=== PATIENT | female | born 1980 | race Caucasian/White ===

== ENCOUNTER 2016-10-02 14:52 | Emergency (ER) | payer OTHER ==
[2016-10-02 15:35] LABS: CONTROL LINE UCG INT CTR LINE PRESENT
== END 2016-10-02 15:58 | disposition left against medical advice (07) ==
LOC: M ED 14:52
DX: Z53.29 Procedure and treatment not carried out because of patient's decision for other reasons (principal)

== ENCOUNTER 2016-10-03 15:38 | Emergency (ER) | payer MEDICAID, OTHER, SELFPAY ==
[2016-10-03] MEDS ORDERED: ONDANSETRON 4MG/2ML VIAL (J2405) As Ordered ONE (17:41)
[2016-10-03] MEDS ORDERED: KETOROLAC 30 MG/ML VIAL (J1885) As Ordered ONE (17:41)
[2016-10-03 18:09] LABS: BASO % 0.2 % (0.0-1.0); EOS # 0.2 K/mm3 (0.0-0.50); EOS % 1.1 % (0.0-3.0); LARGE UNSTAINED CELL # 0.1 K/mm3 (0.0-0.4); LARGE UNSTAINED CELL % 0.7 % (0.0-4.0); LYMPH % 6.3 % (24.0-44.0); MEAN CORPUSCULAR HEMOGLOBIN 32.5 pg (27.0-33.0); MEAN CORPUSCULAR HGB CONC 36.2 g/dl (32.0-36.5); MEAN CORPUSCULAR VOLUME 89.8 fl (80.0-96.0); MONO # 0.6 K/mm3 (0.0-0.8); MONO % 3.9 % (0.0-5.0); NEUTROPHILS # 13.5 K/mm3 (1.8-7.7); NEUTROPHILS % 87.8 % (36.0-66.0); PLATELET COUNT, AUTOMATED 251 k/mm3 (150-450); RED CELL DISTRIBUTION WIDTH 13.3 % (11.5-14.5); WHITE BLOOD COUNT 15.4 K/mm3 (4.0-10.0)
[2016-10-03 18:11] LABS: INR 1.02
[2016-10-03 18:32] LABS: ALBUMIN 3.8 GM/DL (3.2-5.2); ALKALINE PHOSPHATASE 96 U/L (45-117); ALT/SGPT 33 U/L (12-78); AMYLASE 46 U/L (25-115); ANION GAP 10 MEQ/L (8-16); AST/SGOT 17 U/L (15-37); BILIRUBIN,DIRECT 0.2 MG/DL (0.0-0.2); BILIRUBIN,TOTAL 0.6 MG/DL (0.2-1.0); BLOOD UREA NITROGEN 13 MG/DL (7-18); CALCIUM LEVEL 8.9 MG/DL (8.5-10.1); CARBON DIOXIDE LEVEL 24 MEQ/L (21-32); CHLORIDE LEVEL 104 MEQ/L (98-107); CREATININE FOR GFR 0.84 MG/DL (0.55-1.02); GLOMERULAR FILTRATION RATE > 60.0 (>60); GLUCOSE, FASTING 95 MG/DL (70-105); POTASSIUM SERUM 3.9 MEQ/L (3.5-5.1); SODIUM LEVEL 138 MEQ/L (136-145); TOTAL PROTEIN 7.6 GM/DL (6.4-8.2)
--- NOTE | 2016-10-03 19:19 | EDDOCDS ---
Physician Documentation [facility] Name: Ashley Carreon Age: 35 yrs Sex: Female : 1980 Arrival Date: 10/03/2016 Time: 15:38 Bed 9 Private MD: Beto Jimenez FPA Disposition: 10/03/16 19:03 Discharged to Home/Self Care. Impression: Abdominal and pelvic pain. - Condition is Stable. - Discharge Instructions: Abdominal Pain, Adult. - Prescriptions for [place]ade 5- 325 mg Oral Tablet - take 1 tablet by ORAL route every 6 hours As needed MDD: 4 tabs; 20 tablet. Zofran 4 mg Oral Tablet - take 1 tablet by ORAL route 4 times per day As needed; 10 tablet. - Medication Reconciliation, Local Pharmacy Hours form. - Follow up: Beto Jimenez; When: 2 - 3 days; Reason: Recheck today's complaints, Continuance of care. - Problem is an ongoing problem. - Symptoms are unchanged. Historical: - Allergies: peanuts; - Home Meds: 1. albuterol sulfate 90 mcg/actuation Inhl HFAA 1 puff as needed as needed (Last dose: 09/18/2016) - PMHx: Asthma; - PSHx: none; - Social history: Smoking status: Patient uses tobacco products, current every day smoker. No barriers to communication noted, The patient speaks fluent Lao. - Family history: Not pertinent. - : The pt / caregiver states he / she is not on anticoagulants. Home medication list is obtained from the patient. - Exposure Risk Screening:: None identified. 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 4 in. (162.56 cm) (R); Pain 10/10; 19:11 BP 106 / 53; Pulse 86; Resp 18; Temp 97.0(O); Pulse Ox 99% on R/A; Pain 4/10; jon 15:40 Body Mass Index 34.67 (91.63 kg, 162.56 cm) gr2 MDM: 15:47 UCG by Nursing ordered. dt4 15:47 Urinalysis Ordered. EDMS 15:48 Urine Culture Ordered. EDMS 16:45 NS 0.9% 1000 ml IV at 100 mL/hr continuous ordered. ke 16:45 Ondansetron 4 mg IVP once ordered. ke 16:45 ketorolac 30 mg IVP once ordered. ke 16:45 IV Saline Lock ordered. ke 16:45 Undress patient appropriately for examination ordered. ke 16:46 Amylase Ordered. EDMS 16:46 Basic Metabolic Profile Ordered. EDMS 16:46 CBC with Diff Ordered. EDMS 16:46 Lipase Ordered. EDMS 16:46 Liver Profile Ordered. EDMS 16:46 Prothrombin Time Profile\E\INR Ordered. EDMS 16:46 CT ABD & PELVIS: No Contrast Ordered. EDMS 16:46 NOTHING BY MOUTH+DIET ordered. EDMS 18:14 Financial registration complete. gjb 18:39 CBC with Diff Reviewed. ke 18:39 Urinalysis Reviewed. ke 18:39 Amylase Reviewed. ke 18:39 Basic Metabolic Profile Reviewed. ke 18:39 Lipase Reviewed. ke 18:39 Liver Profile Reviewed. ke 18:39 Prothrombin Time Profile\E\INR Reviewed. ke Point of Care Testing: Urine : 17:43 hCG Reading: Negative; Control Reading: Positive; ct3 Ranges: Administered Medications: 17:40 Drug: NS 0.9% 1000 ml [sodium chloride 0.9 % intravenous solution] Route: IV; Rate: 100 ml6 mL/hr; Site: left forearm; 17:40 Drug: Ondansetron 4 mg [ondansetron HCl 2 mg/mL intravenous solution (2 mL)] Route: ml6 IVP; Site: left forearm; 17:40 Drug: ketorolac 30 mg [ketorolac 30 mg/mL (1 mL) injection solution (1 mL)] Route: IVP; ml6 Site: left forearm; Signatures: Dispatcher [employer] Hansel Wellington, RN Vincent Art, ACCOUNTING SOFTWARE SPECIALIST ACCOUNTING SOFTWARE SPECIALIST Keren Schumacher PAErnieC PA-C dt4 Georgia Lopez RN RN ko2 Tania Wheatley Matthew RN ml6 MTDD
--- NOTE | 2016-10-03 19:19 | EDDOCDS ---
Nurse's Notes [facility] Name: Ashley Carreon Age: 35 yrs Sex: Female : 1980 Arrival Date: 10/03/2016 Time: 15:38 Bed 9 Private MD: Beto Jimenez FPA Diagnosis: Abdominal and pelvic pain Presentation: 10/03 15:51 Presenting complaint: Patient states: Left flank pain for 5 days, worsening dwg progressively. Acute neurological deficits are not present. Mechanism of Injury: No Mechanism of Injury. Adult Sepsis Screening: The patient does not have new or worsening altered mentation. Patient's respiratory rate is less than 22. Systolic blood pressure is greater than 100. Patient has a qSOFA score of 0- Negative Sepsis Screen. Suicide/Homicide risk assessment- the patient denies having any suicidal and/or homicidal ideations and does not present with any other emotional, behavioral or mental health complaints. Status: Patient is not a captain room service or dependent. Transition of care: patient was not received from another setting of care. 15:51 Acuity: CLARA Level 3 dwg 15:51 Method Of Arrival: Walkin/Carried/Asstd dwg Triage Assessment: 15:53 General: Appears in no apparent distress. Pain: Pain currently is 8 out of 10 on a pain dwg scale. HIV screening NA for this visit Offered previously. 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 albuterol sulfate 90 mcg/actuation Inhl HFAA 1 puff as needed as needed (Last dose: 09/18/2016) - PMHx: Asthma; - PSHx: none; - Social history: Smoking status: Patient uses tobacco products, current every day smoker. No barriers to communication noted, The patient speaks fluent Rwandan. - Family history: Not pertinent. - : The pt / caregiver states he / she is not on anticoagulants. Home medication list is obtained from the patient. - Exposure Risk Screening:: None identified. Screenin:53 Screening information is obtained from the patient. Fall risk: No risks identified. ml6 Assistance ADL's: requires no assistance with activities of daily living. Abuse/DV Screen: The patient / caregiver reports he/she is: not in a situation that causes fear, pain or injury. Nutritional screening: No deficits noted. Advance Directives: Currently, there is no health care proxy. home support is adequate. Assessment: 16:10 General: Appears in no apparent distress, Behavior is appropriate for age, cooperative. ml6 Pain: Location: abdomen Pain currently is 6 out of 10 on a pain scale. Pain does not radiate. Quality of pain is described as aching, crampy, Pain began 2-3 days ago. Neurological: No deficits noted. Cardiovascular: No deficits noted. Capillary refill < 3 seconds is brisk in bilateral fingers toes. Respiratory: No deficits noted. Airway is patent Respiratory effort is even, unlabored, Respiratory pattern is regular, symmetrical, Breath sounds are clear bilaterally. GI: No deficits noted. Abdomen is flat, non- distended Bowel sounds present X 4 quads. Abd is soft X 4 quads Abd is tender to palpation X 4 quads. Reports nausea, vomiting. Musculoskeletal: No deficits noted. 17:12 Reassessment: Patient appears in no apparent distress at this time. Patient denies pain ml6 at this time. Patient states feeling better. Patient states symptoms have improved. patient states pain has improved. 18:05 Reassessment: Patient appears in no apparent distress at this time. Patient denies pain ml6 at this time. Patient states feeling better. Patient states symptoms have improved. no change from previous assessment. 19:16 General: Appears in no apparent distress, Behavior is appropriate for age, cooperative. ko2 Pain: Location: abdomen. Neurological: No deficits noted. Respiratory: No deficits noted. Airway is patent Respiratory effort is even, unlabored. Musculoskeletal: Range of motion intact in all extremities. Vital Signs: 15:40 BP 134 / 81; Pulse 114; Resp 18 S; Temp 98.5(O); Pulse Ox 99% on R/A; Weight 91.63 kg gr2 (R); Height 5 ft. 4 in. (162.56 cm) (R); Pain 10/10; 19:11 BP 106 / 53; Pulse 86; Resp 18; Temp 97.0(O); Pulse Ox 99% on R/A; Pain 4/10; jon 15:40 Body Mass Index 34.67 (91.63 kg, 162.56 cm) gr2 Vitals: 15:40 Log In Time: October 03, 2016 at 15:40. gr2 ED Course: 15:40 Patient visited by Arnold Calixto. gr2 15:40 Beto Jimenez is Private Physician. gr2 15:40 Patient moved to Waiting gr2 15:41 Patient visited by Arnold Calixto. gr2 15:41 Patient moved to Pre RCE gr2 15:52 Triage Initiated dwg 16:38 Marko Almanzar, RN is Primary Nurse. mb9 16:38 [facility] ke 16:38 Patient visited by Vincent Hewitt FNP. ke 16:38 Patient visited by Vincnet Hewitt FNP. ke 16:38 Patient moved to 9 mb9 17:10 Inserted peripheral IV: 20gauge IV in left forearm and blood collected. Patient ml6 tolerated the procedure well. No procedures done that require assistance. Labs drawn. (by ED staff). Sent per order to lab. 17:13 Patient visited by Vincent Hewitt FNP. ke 17:40 Urine Culture Sent. ct3 17:40 Urinalysis Sent. ct3 17:43 Patient visited by Merlyn Mclaughlin PCA. ct3 18:05 Patient visited by Vincent Hewitt FNP. ke 18:28 Patient visited by Vincent Hewitt FNP. ke 18:43 Patient name changed from Ashley\S\Allsison\S\Lauri\S\ to Ashley\S\A\S\Lauri. EDMS 18:54 Patient visited by Marko Almanzar RN. ml6 19:02 Beto Jimenez is Referral Physician. ke 19:11 Patient visited by Cele Moraes PCA. jon 19:17 The patient / caregiver is instructed regarding the plan of care and ED course. ko2 Administered Medications: 17:40 Drug: NS 0.9% 1000 ml [sodium chloride 0.9 % intravenous solution] Route: IV; Rate: 100 ml6 mL/hr; Site: left forearm; 17:40 Drug: Ondansetron 4 mg [ondansetron HCl 2 mg/mL intravenous solution (2 mL)] Route: ml6 IVP; Site: left forearm; 17:40 Drug: ketorolac 30 mg [ketorolac 30 mg/mL (1 mL) injection solution (1 mL)] Route: IVP; ml6 Site: left forearm; Point of Care Testing: Urine : 17:43 hCG Reading: Negative; Control Reading: Positive; ct3 Ranges: Order Results: Lab Order: Urinalysis; SPEC'M 10/03/16 17:25 Test: APPEARANCE, URINE; Value: HAZY; Range: CLEAR; Status: F Test: COLOR, URINE; Value: YELLOW; Range: YELLOW; Status: F Test: PH,URINE; Value: 5.0; Range: 5.0-9.0; Units: UNITS; Status: F Test: SPECIFIC GRAVITY URINE AUTO; Value: 1.020; Range: 1.002-1.035; Status: F Test: PROTEIN, URINE AUTO; Value: NEGATIVE; Range: NEGATIVE; Units: mg/dL; Status: F Test: GLUCOSE, URINE (UA) AUTO; Value: NEGATIVE; Range: NEGATIVE; Units: mg/dL; Status: F Test: KETONE, URINE AUTO; Value: NEGATIVE; Range: NEGATIVE; Units: mg/dL; Status: F Test: UROBILINOGEN, URINE AUTO; Value: 0.2; Range: 0.0-2.0; Units: mg/dL; Status: F Test: BILIRUBIN, URINE AUTO; Value: NEGATIVE; Range: NEGATIVE; Status: F Test: NITRITE, URINE AUTO; Value: NEGATIVE; Range: NEGATIVE; Status: F Test: LEUKOCYTE ESTERASE, URINE AUTO; Value: NEGATIVE; Range: NEGATIVE; Status: F Test: BLOOD, URINE BLOOD; Value: NEGATIVE; Range: NEGATIVE; Status: F Test: WBC, URINE AUTO; Value: 2; Range: 0-3; Units: /HPF; Status: F Test: RBC, URINE AUTO; Value: 1; Range: 0-3; Units: /HPF; Status: F Test: BACTERIA, URINE AUTO; Value: NEGATIVE; Range: NEGATIVE; Status: F Test: SQUAMOUS EPITHELIAL CELL UR AU; Value: 4; Range: 0-6; Units: /HPF; Status: F Test: MUCUS, URINE; Value: SMALL; Range: NEGATIVE; Status: F Test: HYALINE CAST, URINE AUTO; Value: 0; Range: 0-1; Units: /LPF; Status: F Lab Order: Amylase; SPEC'M 10/03/16 17:49 Test: AMYLASE; Value: 46; Range: 25-115; Units: U/L; Status: F Lab Order: Basic Metabolic Profile; SPEC'M 10/03/16 17:49 Test: GLUCOSE, FASTING; Value: 95; Range: 70-105; Units: MG/DL; Status: F Test: BLOOD UREA NITROGEN; Value: 13; Range: 7-18; Units: MG/DL; Status: F Test: CREATININE FOR GFR; Value: 0.84; Range: 0.55-1.02; Units: MG/DL; Status: F Test: GLOMERULAR FILTRATION RATE; Value: > 60.0; Range: >60; Status: F Test: SODIUM LEVEL; Value: 138; Range: 136-145; Units: MEQ/L; Status: F Test: POTASSIUM SERUM; Value: 3.9; Range: 3.5-5.1; Units: MEQ/L; Status: F Test: CHLORIDE LEVEL; Value: 104; Range: 98-107; Units: MEQ/L; Status: F Test: CARBON DIOXIDE LEVEL; Value: 24; Range: 21-32; Units: MEQ/L; Status: F Test: ANION GAP; Value: 10; Range: 8-16; Units: MEQ/L; Status: F Test: CALCIUM LEVEL; Value: 8.9; Range: 8.5-10.1; Units: MG/DL; Status: F Test Note: ; Units are mL/min/1.73 m2 Chronic Kidney Disease Staging per NKF: Stage I & II GFR >=60 Normal to Mildly Decreased Stage III GFR 30-59 Moderately Decreased Stage IV GFR 15-29 Severely Decreased Stage V GFR <15 Very Little GFR Left ESRD GFR <15 on EMBEDDED SYSTEMS ENGINEER Lab Order: CBC with Diff; SPEC'M 10/03/16 17:50 Test: WHITE BLOOD COUNT; Value: 15.4; Range: 4.0-10.0; Abnormal: Above high normal; Units: K/mm3; Status: F Test: RED BLOOD COUNT; Value: 5.12; Range: 4.00-5.40; Units: M/mm3; Status: F Test: HEMOGLOBIN; Value: 16.7; Range: 12.0-16.0; Abnormal: Above high normal; Units: g/dl; Status: F Test: HEMATOCRIT; Value: 46.0; Range: 36.0-47.0; Units: %; Status: F Test: MEAN CORPUSCULAR VOLUME; Value: 89.8; Range: 80.0-96.0; Units: fl; Status: F Test: MEAN CORPUSCULAR HEMOGLOBIN; Value: 32.5; Range: 27.0-33.0; Units: pg; Status: F Test: MEAN CORPUSCULAR HGB CONC; Value: 36.2; Range: 32.0-36.5; Units: g/dl; Status: F Test: RED CELL DISTRIBUTION WIDTH; Value: 13.3; Range: 11.5-14.5; Units: %; Status: F Test: PLATELET COUNT, AUTOMATED; Value: 251; Range: 150-450; Units: k/mm3; Status: F Test: NEUTROPHILS %; Value: 87.8; Range: 36.0-66.0; Abnormal: Above high normal; Units: %; Status: F Test: LYMPH %; Value: 6.3; Range: 24.0-44.0; Abnormal: Below low normal; Units: %; Status: F Test: MONO %; Value: 3.9; Range: 0.0-5.0; Units: %; Status: F Test: EOS %; Value: 1.1; Range: 0.0-3.0; Units: %; Status: F Test: BASO %; Value: 0.2; Range: 0.0-1.0; Units: %; Status: F Test: LARGE UNSTAINED CELL %; Value: 0.7; Range: 0.0-4.0; Units: %; Status: F Test: NEUTROPHILS #; Value: 13.5; Range: 1.8-7.7; Abnormal: Above high normal; Units: K/mm3; Status: F Test: LYMPH #; Value: 1.0; Range: 1.5-4.5; Abnormal: Below low normal; Units: K/mm3; Status: F Test: MONO #; Value: 0.6; Range: 0.0-0.8; Units: K/mm3; Status: F Test: EOS #; Value: 0.2; Range: 0.0-0.50; Units: K/mm3; Status: F Test: BASO #; Value: 0.0; Range: 0.0-0.2; Units: K/mm3; Status: F Test: LARGE UNSTAINED CELL #; Value: 0.1; Range: 0.0-0.4; Units: K/mm3; Status: F Lab Order: Lipase; SPEC'M 10/03/16 17:49 Test: LIPASE; Value: 88; Range: 73-393; Units: U/L; Status: F Lab Order: Liver Profile; SPEC'M 10/03/16 17:49 Test: AST/SGOT; Value: 17; Range: 15-37; Units: U/L; Status: F Test: ALT/SGPT; Value: 33; Range: 12-78; Units: U/L; Status: F Test: ALKALINE PHOSPHATASE; Value: 96; Range: 45-117; Units: U/L; Status: F Test: BILIRUBIN,TOTAL; Value: 0.6; Range: 0.2-1.0; Units: MG/DL; Status: F Test: BILIRUBIN,DIRECT; Value: 0.2; Range: 0.0-0.2; Units: MG/DL; Status: F Test: TOTAL PROTEIN; Value: 7.6; Range: 6.4-8.2; Units: GM/DL; Status: F Test: ALBUMIN; Value: 3.8; Range: 3.2-5.2; Units: GM/DL; Status: F Test: ALBUMIN/GLOBULIN RATIO; Value: 1.00; Range: 1.00-1.93; Status: F Lab Order: Prothrombin Time Profile\E\INR; [facility] 10/03/16 17:49 Test: PROTHROMBIN TIME; Value: 13.5; Range: 12.3-14.5; Units: SECONDS; Status: F Test: INR; Value: 1.02; Status: F Test Note: ; THERAPUTIC HUMAN INR VALUES INDICATIONS NORMAL RANGES PROPHYLAXIS/TREATMENT OF: VENOUS THROMBOSIS 2.0-3.0 PULMONARY EMBOLISM 2.0-3.0 PREVENTION OF SYSTEMIC EMBOLISM FROM: TISSUE HEART VALVES 2.0-3.0 ACUTE MYOCARDIAL INFARCTION 2.0-3.0 VALVULAR HEART DISEASE 2.0-3.0 ATRIAL FIBRILLATION 2.0-3.0 MECHANICAL VALVES(HIGH RISK) 2.5-3.5 RECURRENT MYOCARDIAL INFARCTION 2.5-3.5 Outcome: 19:03 Discharge ordered by Provider. timothy 19:18 Discharge Assessment: Patient awake, alert and oriented x 3. No cognitive and/or ko2 functional deficits noted. Patient verbalized understanding of disposition instructions. patient administered narcotics - no. The following High Risk Discharge criteria are identified: None. Discharged to home ambulatory. Condition: stable. Discharge instructions given to patient, Instructed on discharge instructions, follow up and referral plans. medication usage, Demonstrated understanding of instructions, medications, Pt was receptive of discharge instructions/ teaching. Prescriptions given X 2. CT Study completed. Property sent home with patient. 19:18 Patient left the ED. ko2 Signatures: Dispatcher [employer] EDMS Hansel Chavira, RN RN Vincent Messer, PRINCIPAL LIBRARIAN PRINCIPAL LIBRARIAN Marko Ford, RN RN ml6 Cele Moraes, FISH ROD MAKER FISH ROD MAKER jon Merlyn Mclaughlin, FISH ROD MAKER FISH ROD MAKER ct3 Arnold Calixto gr2 Georgia Lopez,RN RN ko2 Beto Beavers,RN RN mb9 MTDD
--- NOTE | 2016-10-03 19:28 | REP ---
CT ABDOMEN AND PELVIS WITHOUT CONTRAST: HISTORY: Renal colic. COMPARISON: 06/22/2007. Calcifications are present in the kidneys consistent with nephrolithiasis. There is no hydroureter. The liver, gallbladder, pancreas, spleen and adrenal glands are normal in appearance. There is no mass adenopathy or free fluid. The visualized lungs are clear. IMPRESSION: Bilateral nephrolithiasis. CT PELVIS: The urinary bladder and uterus are normal in appearance. There is no mass, adenopathy or free fluid. Diverticula are present in the descending and sigmoid colon. IMPRESSION: Diverticulosis. Signed by Juan A Talbot MD 10/03/2016 07:31 P
--- NOTE | 2016-10-05 20:19 | EDDOCDS ---
Nurse's Notes [facility] Name: Ashley Carreon Age: 35 yrs Sex: Female : 1980 Arrival Date: 10/03/2016 Time: 15:38 Bed 9 Private MD: Beto Jimenez FPA Diagnosis: Abdominal and pelvic pain Presentation: 10/03 15:51 Presenting complaint: Patient states: Left flank pain for 5 days, worsening dwg progressively. Acute neurological deficits are not present. Mechanism of Injury: No Mechanism of Injury. Adult Sepsis Screening: The patient does not have new or worsening altered mentation. Patient's respiratory rate is less than 22. Systolic blood pressure is greater than 100. Patient has a qSOFA score of 0- Negative Sepsis Screen. Suicide/Homicide risk assessment- the patient denies having any suicidal and/or homicidal ideations and does not present with any other emotional, behavioral or mental health complaints. Status: Patient is not a branch service specialist or dependent. Transition of care: patient was not received from another setting of care. 15:51 Acuity: CLARA Level 3 dwg 15:51 Method Of Arrival: Walkin/Carried/Asstd dwg Triage Assessment: 15:53 General: Appears in no apparent distress. Pain: Pain currently is 8 out of 10 on a pain dwg scale. HIV screening NA for this visit Offered previously. 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 albuterol sulfate 90 mcg/actuation Inhl HFAA 1 puff as needed as needed (Last dose: 09/18/2016) - PMHx: Asthma; - PSHx: none; - Social history: Smoking status: Patient uses tobacco products, current every day smoker. No barriers to communication noted, The patient speaks fluent Samoan. - Family history: Not pertinent. - : The pt / caregiver states he / she is not on anticoagulants. Home medication list is obtained from the patient. - Exposure Risk Screening:: None identified. Screenin:53 Screening information is obtained from the patient. Fall risk: No risks identified. ml6 Assistance ADL's: requires no assistance with activities of daily living. Abuse/DV Screen: The patient / caregiver reports he/she is: not in a situation that causes fear, pain or injury. Nutritional screening: No deficits noted. Advance Directives: Currently, there is no health care proxy. home support is adequate. Assessment: 16:10 General: Appears in no apparent distress, Behavior is appropriate for age, cooperative. ml6 Pain: Location: abdomen Pain currently is 6 out of 10 on a pain scale. Pain does not radiate. Quality of pain is described as aching, crampy, Pain began 2-3 days ago. Neurological: No deficits noted. Cardiovascular: No deficits noted. Capillary refill < 3 seconds is brisk in bilateral fingers toes. Respiratory: No deficits noted. Airway is patent Respiratory effort is even, unlabored, Respiratory pattern is regular, symmetrical, Breath sounds are clear bilaterally. GI: No deficits noted. Abdomen is flat, non- distended Bowel sounds present X 4 quads. Abd is soft X 4 quads Abd is tender to palpation X 4 quads. Reports nausea, vomiting. Musculoskeletal: No deficits noted. 17:12 Reassessment: Patient appears in no apparent distress at this time. Patient denies pain ml6 at this time. Patient states feeling better. Patient states symptoms have improved. patient states pain has improved. 18:05 Reassessment: Patient appears in no apparent distress at this time. Patient denies pain ml6 at this time. Patient states feeling better. Patient states symptoms have improved. no change from previous assessment. 19:16 General: Appears in no apparent distress, Behavior is appropriate for age, cooperative. ko2 Pain: Location: abdomen. Neurological: No deficits noted. Respiratory: No deficits noted. Airway is patent Respiratory effort is even, unlabored. Musculoskeletal: Range of motion intact in all extremities. Vital Signs: 15:40 BP 134 / 81; Pulse 114; Resp 18 S; Temp 98.5(O); Pulse Ox 99% on R/A; Weight 91.63 kg gr2 (R); Height 5 ft. 4 in. (162.56 cm) (R); Pain 10/10; 19:11 BP 106 / 53; Pulse 86; Resp 18; Temp 97.0(O); Pulse Ox 99% on R/A; Pain 4/10; jon 15:40 Body Mass Index 34.67 (91.63 kg, 162.56 cm) gr2 Vitals: 15:40 Log In Time: October 03, 2016 at 15:40. gr2 ED Course: 15:40 Patient visited by Arnold Calixto. gr2 15:40 Beto Jimenez is Private Physician. gr2 15:40 Patient moved to Waiting gr2 15:41 Patient visited by Arnold Calixto. gr2 15:41 Patient moved to Pre RCE gr2 15:52 Triage Initiated dwg 16:38 Marko Almanzar, RN is Primary Nurse. mb9 16:38 [facility] ke 16:38 Patient visited by Vincent Hewitt FNP. ke 16:38 Patient visited by Vincent Hewitt FNP. ke 16:38 Patient moved to 9 9 17:10 Inserted peripheral IV: 20gauge IV in left forearm and blood collected. Patient ml6 tolerated the procedure well. No procedures done that require assistance. Labs drawn. (by ED staff). Sent per order to lab. 17:13 Patient visited by Vincent Hewitt FNP. ke 17:40 Urine Culture Sent. ct3 17:40 Urinalysis Sent. ct3 17:43 Patient visited by Merlyn Mclaughlin PCA. ct3 18:05 Patient visited by Vincent Hewitt FNP. ke 18:28 Patient visited by Vincent Hewitt FNP. ke 18:43 Patient name changed from Ashley\S\Allsison\S\Lauri\S\ to Ashley\S\A\S\Lauri. EDMS 18:54 Patient visited by Marko Almanzar RN. ml6 19:02 Beto Jimenez is Referral Physician. ke 19:11 Patient visited by Cele Moraes PCA. jon 19:17 The patient / caregiver is instructed regarding the plan of care and ED course. ko2 19:33 [facility] Payment Agreement was scanned into [employer] and attached to record. gjb 20:15 CT ABD & PELVIS: No Contrast Returned. EDMS 10/04 09:17 T-Sheet-- Draft Copy was scanned into [employer] and attached to record. gb Administered Medications: 10/03 17:40 Drug: NS 0.9% 1000 ml [sodium chloride 0.9 % intravenous solution] Route: IV; Rate: 100 ml6 mL/hr; Site: left forearm; 17:40 Drug: Ondansetron 4 mg [ondansetron HCl 2 mg/mL intravenous solution (2 mL)] Route: ml6 IVP; Site: left forearm; 17:40 Drug: ketorolac 30 mg [ketorolac 30 mg/mL (1 mL) injection solution (1 mL)] Route: IVP; ml6 Site: left forearm; Point of Care Testing: Urine : 17:43 hCG Reading: Negative; Control Reading: Positive; ct3 Ranges: Order Results: Lab Order: Urinalysis; SPEC'M 10/03/16 17:25 Test: APPEARANCE, URINE; Value: HAZY; Range: CLEAR; Status: F Test: COLOR, URINE; Value: YELLOW; Range: YELLOW; Status: F Test: PH,URINE; Value: 5.0; Range: 5.0-9.0; Units: UNITS; Status: F Test: SPECIFIC GRAVITY URINE AUTO; Value: 1.020; Range: 1.002-1.035; Status: F Test: PROTEIN, URINE AUTO; Value: NEGATIVE; Range: NEGATIVE; Units: mg/dL; Status: F Test: GLUCOSE, URINE (UA) AUTO; Value: NEGATIVE; Range: NEGATIVE; Units: mg/dL; Status: F Test: KETONE, URINE AUTO; Value: NEGATIVE; Range: NEGATIVE; Units: mg/dL; Status: F Test: UROBILINOGEN, URINE AUTO; Value: 0.2; Range: 0.0-2.0; Units: mg/dL; Status: F Test: BILIRUBIN, URINE AUTO; Value: NEGATIVE; Range: NEGATIVE; Status: F Test: NITRITE, URINE AUTO; Value: NEGATIVE; Range: NEGATIVE; Status: F Test: LEUKOCYTE ESTERASE, URINE AUTO; Value: NEGATIVE; Range: NEGATIVE; Status: F Test: BLOOD, URINE BLOOD; Value: NEGATIVE; Range: NEGATIVE; Status: F Test: WBC, URINE AUTO; Value: 2; Range: 0-3; Units: /HPF; Status: F Test: RBC, URINE AUTO; Value: 1; Range: 0-3; Units: /HPF; Status: F Test: BACTERIA, URINE AUTO; Value: NEGATIVE; Range: NEGATIVE; Status: F Test: SQUAMOUS EPITHELIAL CELL UR AU; Value: 4; Range: 0-6; Units: /HPF; Status: F Test: MUCUS, URINE; Value: SMALL; Range: NEGATIVE; Status: F Test: HYALINE CAST, URINE AUTO; Value: 0; Range: 0-1; Units: /LPF; Status: F Lab Order: Urine Culture; SPEC'M 10/03/16 17:25 Test: URINE CULTURE; Value: URINE CULTURE RESULT; Status: F Test: URINE CULTURE; Value: NO GROWTH CLINICAL SIGNIFICANCE 2 OR MORE ORGANISMS; Status: F Lab Order: Amylase; SPECM 10/03/16 17:49 Test: AMYLASE; Value: 46; Range: 25-115; Units: U/L; Status: F Lab Order: Basic Metabolic Profile; SPECM 10/03/16 17:49 Test: GLUCOSE, FASTING; Value: 95; Range: 70-105; Units: MG/DL; Status: F Test: BLOOD UREA NITROGEN; Value: 13; Range: 7-18; Units: MG/DL; Status: F Test: CREATININE FOR GFR; Value: 0.84; Range: 0.55-1.02; Units: MG/DL; Status: F Test: GLOMERULAR FILTRATION RATE; Value: > 60.0; Range: >60; Status: F Test: SODIUM LEVEL; Value: 138; Range: 136-145; Units: MEQ/L; Status: F Test: POTASSIUM SERUM; Value: 3.9; Range: 3.5-5.1; Units: MEQ/L; Status: F Test: CHLORIDE LEVEL; Value: 104; Range: 98-107; Units: MEQ/L; Status: F Test: CARBON DIOXIDE LEVEL; Value: 24; Range: 21-32; Units: MEQ/L; Status: F Test: ANION GAP; Value: 10; Range: 8-16; Units: MEQ/L; Status: F Test: CALCIUM LEVEL; Value: 8.9; Range: 8.5-10.1; Units: MG/DL; Status: F Test Note: ; Units are mL/min/1.73 m2 Chronic Kidney Disease Staging per NKF: Stage I & II GFR >=60 Normal to Mildly Decreased Stage III GFR 30-59 Moderately Decreased Stage IV GFR 15-29 Severely Decreased Stage V GFR <15 Very Little GFR Left ESRD GFR <15 on MUSEUM ATTENDANT Lab Order: CBC with Diff; SPECM 10/03/16 17:50 Test: WHITE BLOOD COUNT; Value: 15.4; Range: 4.0-10.0; Abnormal: Above high normal; Units: K/mm3; Status: F Test: RED BLOOD COUNT; Value: 5.12; Range: 4.00-5.40; Units: M/mm3; Status: F Test: HEMOGLOBIN; Value: 16.7; Range: 12.0-16.0; Abnormal: Above high normal; Units: g/dl; Status: F Test: HEMATOCRIT; Value: 46.0; Range: 36.0-47.0; Units: %; Status: F Test: MEAN CORPUSCULAR VOLUME; Value: 89.8; Range: 80.0-96.0; Units: fl; Status: F Test: MEAN CORPUSCULAR HEMOGLOBIN; Value: 32.5; Range: 27.0-33.0; Units: pg; Status: F Test: MEAN CORPUSCULAR HGB CONC; Value: 36.2; Range: 32.0-36.5; Units: g/dl; Status: F Test: RED CELL DISTRIBUTION WIDTH; Value: 13.3; Range: 11.5-14.5; Units: %; Status: F Test: PLATELET COUNT, AUTOMATED; Value: 251; Range: 150-450; Units: k/mm3; Status: F Test: NEUTROPHILS %; Value: 87.8; Range: 36.0-66.0; Abnormal: Above high normal; Units: %; Status: F Test: LYMPH %; Value: 6.3; Range: 24.0-44.0; Abnormal: Below low normal; Units: %; Status: F Test: MONO %; Value: 3.9; Range: 0.0-5.0; Units: %; Status: F Test: EOS %; Value: 1.1; Range: 0.0-3.0; Units: %; Status: F Test: BASO %; Value: 0.2; Range: 0.0-1.0; Units: %; Status: F Test: LARGE UNSTAINED CELL %; Value: 0.7; Range: 0.0-4.0; Units: %; Status: F Test: NEUTROPHILS #; Value: 13.5; Range: 1.8-7.7; Abnormal: Above high normal; Units: K/mm3; Status: F Test: LYMPH #; Value: 1.0; Range: 1.5-4.5; Abnormal: Below low normal; Units: K/mm3; Status: F Test: MONO #; Value: 0.6; Range: 0.0-0.8; Units: K/mm3; Status: F Test: EOS #; Value: 0.2; Range: 0.0-0.50; Units: K/mm3; Status: F Test: BASO #; Value: 0.0; Range: 0.0-0.2; Units: K/mm3; Status: F Test: LARGE UNSTAINED CELL #; Value: 0.1; Range: 0.0-0.4; Units: K/mm3; Status: F Lab Order: Lipase; SPEC'M 10/03/16 17:49 Test: LIPASE; Value: 88; Range: 73-393; Units: U/L; Status: F Lab Order: Liver Profile; SPEC' 10/03/16 17:49 Test: AST/SGOT; Value: 17; Range: 15-37; Units: U/L; Status: F Test: ALT/SGPT; Value: 33; Range: 12-78; Units: U/L; Status: F Test: ALKALINE PHOSPHATASE; Value: 96; Range: 45-117; Units: U/L; Status: F Test: BILIRUBIN,TOTAL; Value: 0.6; Range: 0.2-1.0; Units: MG/DL; Status: F Test: BILIRUBIN,DIRECT; Value: 0.2; Range: 0.0-0.2; Units: MG/DL; Status: F Test: TOTAL PROTEIN; Value: 7.6; Range: 6.4-8.2; Units: GM/DL; Status: F Test: ALBUMIN; Value: 3.8; Range: 3.2-5.2; Units: GM/DL; Status: F Test: ALBUMIN/GLOBULIN RATIO; Value: 1.00; Range: 1.00-1.93; Status: F Lab Order: Prothrombin Time Profile\E\INR; SPEC' 10/03/16 17:49 Test: PROTHROMBIN TIME; Value: 13.5; Range: 12.3-14.5; Units: SECONDS; Status: F Test: INR; Value: 1.02; Status: F Test Note: ; THERAPUTIC HUMAN INR VALUES INDICATIONS NORMAL RANGES PROPHYLAXIS/TREATMENT OF: VENOUS THROMBOSIS 2.0-3.0 PULMONARY EMBOLISM 2.0-3.0 PREVENTION OF SYSTEMIC EMBOLISM FROM: TISSUE HEART VALVES 2.0-3.0 ACUTE MYOCARDIAL INFARCTION 2.0-3.0 VALVULAR HEART DISEASE 2.0-3.0 ATRIAL FIBRILLATION 2.0-3.0 MECHANICAL VALVES(HIGH RISK) 2.5-3.5 RECURRENT MYOCARDIAL INFARCTION 2.5-3.5 Radiology Order: CT ABD & PELVIS: No Contrast Test: CT ABD & PELVIS: No Contrast REASON FOR EXAMINATION: Renal colic; CT ABDOMEN AND PELVIS WITHOUT CONTRAST:; ; HISTORY: Renal colic.; ; COMPARISON: 06/22/2007.; ; Calcifications are present in the kidneys consistent with nephrolithiasis. There; is no hydroureter. The liver, gallbladder, pancreas, spleen and adrenal glands; are normal in appearance. There is no mass adenopathy or free fluid. The; visualized lungs are clear.; ; IMPRESSION:; ; Bilateral nephrolithiasis.; ; CT PELVIS:; ; The urinary bladder and uterus are normal in appearance. There is no mass,; adenopathy or free fluid. Diverticula are present in the descending and sigmoid; colon.; ; IMPRESSION:; ; Diverticulosis.; ; ; Signed by; Juan A Talbot MD 10/03/2016 07:31 P; Outcome: 19:03 Discharge ordered by Provider. timothy 19:18 Discharge Assessment: Patient awake, alert and oriented x 3. No cognitive and/or ko2 functional deficits noted. Patient verbalized understanding of disposition instructions. patient administered narcotics - no. The following High Risk Discharge criteria are identified: None. Discharged to home ambulatory. Condition: stable. Discharge instructions given to patient, Instructed on discharge instructions, follow up and referral plans. medication usage, Demonstrated understanding of instructions, medications, Pt was receptive of discharge instructions/ teaching. Prescriptions given X 2. CT Study completed. Property sent home with patient. 19:18 Patient left the ED. ko2 Signatures: Dispatcher [employer] EDMS Hansel hCavira, RN Aisha Pandya, Reg Reg gb Vincent Hewitt, FEED AND FARM MANAGEMENT ADVISER FEED AND FARM MANAGEMENT ADVISER Marko Ford RN RN ml6 Cele Moraes, ACID MAKER ACID MAKER jon Merlyn Mclaughlin, ACID MAKER ACID MAKER ct3 Arnold Calixto gr2 Georgia Lopez,RN RN ko2 Beto BeaversRN RN mb9 Tania Wheatley Chart Complete MTDD
--- NOTE | 2016-10-05 20:19 | EDDOCDS ---
Physician Documentation [facility] Name: Ashley Carreon Age: 35 yrs Sex: Female : 1980 Arrival Date: 10/03/2016 Time: 15:38 Bed 9 Private MD: Beto Jimenez FPA Disposition: 10/03/16 19:03 Discharged to Home/Self Care. Impression: Abdominal and pelvic pain. - Condition is Stable. - Discharge Instructions: Abdominal Pain, Adult. - Prescriptions for Purchase 5- 325 mg Oral Tablet - take 1 tablet by ORAL route every 6 hours As needed MDD: 4 tabs; 20 tablet. Zofran 4 mg Oral Tablet - take 1 tablet by ORAL route 4 times per day As needed; 10 tablet. - Medication Reconciliation, Local Pharmacy Hours form. - Follow up: Beto Jimenez; When: 2 - 3 days; Reason: Recheck today's complaints, Continuance of care. - Problem is an ongoing problem. - Symptoms are unchanged. Historical: - Allergies: peanuts; - Home Meds: 1. albuterol sulfate 90 mcg/actuation Inhl HFAA 1 puff as needed as needed (Last dose: 09/18/2016) - PMHx: Asthma; - PSHx: none; - Social history: Smoking status: Patient uses tobacco products, current every day smoker. No barriers to communication noted, The patient speaks fluent Rwandan. - Family history: Not pertinent. - : The pt / caregiver states he / she is not on anticoagulants. Home medication list is obtained from the patient. - Exposure Risk Screening:: None identified. 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 4 in. (162.56 cm) (R); Pain 10/10; 19:11 BP 106 / 53; Pulse 86; Resp 18; Temp 97.0(O); Pulse Ox 99% on R/A; Pain 4/10; jon 15:40 Body Mass Index 34.67 (91.63 kg, 162.56 cm) gr2 MDM: 15:47 UCG by Nursing ordered. dt4 15:47 Urinalysis Ordered. EDMS 15:48 Urine Culture Ordered. EDMS 16:45 NS 0.9% 1000 ml IV at 100 mL/hr continuous ordered. ke 16:45 Ondansetron 4 mg IVP once ordered. ke 16:45 ketorolac 30 mg IVP once ordered. ke 16:45 IV Saline Lock ordered. ke 16:45 Undress patient appropriately for examination ordered. ke 16:46 Amylase Ordered. EDMS 16:46 Basic Metabolic Profile Ordered. EDMS 16:46 CBC with Diff Ordered. EDMS 16:46 Lipase Ordered. EDMS 16:46 Liver Profile Ordered. EDMS 16:46 Prothrombin Time Profile\E\INR Ordered. EDMS 16:46 CT ABD & PELVIS: No Contrast Ordered. EDMS 16:46 NOTHING BY MOUTH+DIET ordered. EDMS 18:14 Financial registration complete. gjb 18:39 CBC with Diff Reviewed. ke 18:39 Urinalysis Reviewed. ke 18:39 Amylase Reviewed. ke 18:39 Basic Metabolic Profile Reviewed. ke 18:39 Lipase Reviewed. ke 18:39 Liver Profile Reviewed. ke 18:39 Prothrombin Time Profile\E\INR Reviewed. ke 19:33 [facility] Payment Agreement was scanned into [email or web address] and attached to record. [facility] 10/04 09:17 T-Sheet-- Draft Copy was scanned into [email or web address] and attached to record. velasquez Point of Care Testing: Urine : 10/03 17:43 hCG Reading: Negative; Control Reading: Positive; ct3 Ranges: Administered Medications: 17:40 Drug: NS 0.9% 1000 ml [sodium chloride 0.9 % intravenous solution] Route: IV; Rate: 100 ml6 mL/hr; Site: left forearm; 17:40 Drug: Ondansetron 4 mg [ondansetron HCl 2 mg/mL intravenous solution (2 mL)] Route: ml6 IVP; Site: left forearm; 17:40 Drug: ketorolac 30 mg [ketorolac 30 mg/mL (1 mL) injection solution (1 mL)] Route: IVP; ml6 Site: left forearm; Signatures: Dispatcher [employer] EDMS Hansel Chavira, JOSEPH RN christineg Aisha Castro, Maverick Reg Vincent Leon, BRASS FINISHER BRASS FINISHER Keren Schumacher PA-C PAPower dt4 Georgia LopezRN RN ko2 Tania Wheatley Matthew RN ml6 The chart was reviewed and I authenticate all verbal orders and agree with the evaluation and treatment provided.Attachments: 19:33 [facility] Payment Agreement gjb 10/04 09:17 T-Sheet-- Draft Copy gb Chart Complete MTDD
--- NOTE | 2016-10-05 20:19 | EDDOCDS ---
Physician Documentation [facility] Name: Ashley Carreon Age: 35 yrs Sex: Female : 1980 Arrival Date: 10/03/2016 Time: 15:38 Bed 9 Private MD: Beto Jimenez FPA Disposition: 10/03/16 19:03 Discharged to Home/Self Care. Impression: Abdominal and pelvic pain. - Condition is Stable. - Discharge Instructions: Abdominal Pain, Adult. - Prescriptions for Lindsay 5- 325 mg Oral Tablet - take 1 tablet by ORAL route every 6 hours As needed MDD: 4 tabs; 20 tablet. Zofran 4 mg Oral Tablet - take 1 tablet by ORAL route 4 times per day As needed; 10 tablet. - Medication Reconciliation, Local Pharmacy Hours form. - Follow up: Beto Jimenez; When: 2 - 3 days; Reason: Recheck today's complaints, Continuance of care. - Problem is an ongoing problem. - Symptoms are unchanged. Historical: - Allergies: peanuts; - Home Meds: 1. albuterol sulfate 90 mcg/actuation Inhl HFAA 1 puff as needed as needed (Last dose: 09/18/2016) - PMHx: Asthma; - PSHx: none; - Social history: Smoking status: Patient uses tobacco products, current every day smoker. No barriers to communication noted, The patient speaks fluent Marshallese. - Family history: Not pertinent. - : The pt / caregiver states he / she is not on anticoagulants. Home medication list is obtained from the patient. - Exposure Risk Screening:: None identified. 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 4 in. (162.56 cm) (R); Pain 10/10; 19:11 BP 106 / 53; Pulse 86; Resp 18; Temp 97.0(O); Pulse Ox 99% on R/A; Pain 4/10; jon 15:40 Body Mass Index 34.67 (91.63 kg, 162.56 cm) gr2 MDM: 15:47 UCG by Nursing ordered. dt4 15:47 Urinalysis Ordered. EDMS 15:48 Urine Culture Ordered. EDMS 16:45 NS 0.9% 1000 ml IV at 100 mL/hr continuous ordered. ke 16:45 Ondansetron 4 mg IVP once ordered. ke 16:45 ketorolac 30 mg IVP once ordered. ke 16:45 IV Saline Lock ordered. ke 16:45 Undress patient appropriately for examination ordered. ke 16:46 Amylase Ordered. EDMS 16:46 Basic Metabolic Profile Ordered. EDMS 16:46 CBC with Diff Ordered. EDMS 16:46 Lipase Ordered. EDMS 16:46 Liver Profile Ordered. EDMS 16:46 Prothrombin Time Profile\E\INR Ordered. EDMS 16:46 CT ABD & PELVIS: No Contrast Ordered. EDMS 16:46 NOTHING BY MOUTH+DIET ordered. EDMS 18:14 Financial registration complete. gjb 18:39 CBC with Diff Reviewed. ke 18:39 Urinalysis Reviewed. ke 18:39 Amylase Reviewed. ke 18:39 Basic Metabolic Profile Reviewed. ke 18:39 Lipase Reviewed. ke 18:39 Liver Profile Reviewed. ke 18:39 Prothrombin Time Profile\E\INR Reviewed. ke 19:33 [facility] Payment Agreement was scanned into [employer] and attached to record. [facility] 10/04 09:17 T-Sheet-- Draft Copy was scanned into [employer] and attached to record. velasquez Point of Care Testing: Urine : 10/03 17:43 hCG Reading: Negative; Control Reading: Positive; ct3 Ranges: Administered Medications: 17:40 Drug: NS 0.9% 1000 ml [sodium chloride 0.9 % intravenous solution] Route: IV; Rate: 100 ml6 mL/hr; Site: left forearm; 17:40 Drug: Ondansetron 4 mg [ondansetron HCl 2 mg/mL intravenous solution (2 mL)] Route: ml6 IVP; Site: left forearm; 17:40 Drug: ketorolac 30 mg [ketorolac 30 mg/mL (1 mL) injection solution (1 mL)] Route: IVP; ml6 Site: left forearm; Signatures: Dispatcher [employer] EDMS Hansel Chavira, JOSEPH RN christineg Aisha Castro, Maverick Reg Vincent Leon, ARTS AND CRAFTS TEACHER ARTS AND CRAFTS TEACHER Keren Schumacher PA-C PAPower dt4 Georgia LopezRN RN ko2 Tania Wheatley Matthew RN ml6 The chart was reviewed and I authenticate all verbal orders and agree with the evaluation and treatment provided.Attachments: 19:33 [facility] Payment Agreement gjb 10/04 09:17 T-Sheet-- Draft Copy gb Chart Complete MTDD
== END 2016-10-03 19:18 | disposition home or self-care (01) ==
LOC: M ED 15:38
DX: R10.9 Unspecified abdominal pain (principal); R11.0 Nausea; J45.909 Unspecified asthma, uncomplicated; Z72.0 Tobacco use; Z91.010 Allergy to peanuts
CPT/HCPCS: 36415; 74176; 80048; 80076; 81001; 81025; 82150; 83690; 85025; 85610; 87086; 96374; 96375; 99284; J1885; J2405

== ENCOUNTER → 2017-10-12 | Outpatient (CLI) | payer OTHER ==
[2017-10-12 18:40] LABS: PROGESTERONE 0.4 NG/ML
[2017-10-12 18:41] LABS: FOLLICLE STIMULATING HORMONE 3.9 mIU/mL; LUTEINIZING HORMONE 2.5 mIU/mL; PROLACTIN 8.5 NG/ML
[2017-10-14 08:06] LABS: DEHYDROEPIANDROSTERONE SULFATE 121.7 ug/dL (57.3-279.2)
== END ==
LOC: M LAB 15:56
DX: N92.6 Irregular menstruation, unspecified (principal)
CPT/HCPCS: 83001

== ENCOUNTER → 2017-10-17 | Outpatient (CLI) | payer OTHER | LOC: M RAD 15:56 | DX: N92.6 Irregular menstruation, unspecified (principal) | CPT/HCPCS: 76856 ==

== ENCOUNTER → 2017-10-29 | Outpatient (CLI) | payer OTHER ==
[2017-10-29 14:47] LABS: PROGESTERONE 0.5 NG/ML
[2017-10-29 14:48] LABS: FOLLICLE STIMULATING HORMONE 6.1 mIU/mL; LUTEINIZING HORMONE 4.4 mIU/mL; PROLACTIN 3.4 NG/ML
[2017-10-30 08:06] LABS: DEHYDROEPIANDROSTERONE SULFATE 188.3 ug/dL (57.3-279.2)
== END ==
LOC: M LAB 13:05
DX: N92.6 Irregular menstruation, unspecified (principal)
CPT/HCPCS: 83001